=== PATIENT | male | born 2000 | race Caucasian/White ===

== ENCOUNTER → 2022-07-26 | Outpatient (POV) | payer OTHER ==
[~2022-07-26] VITALS: Ht 182.9 cm; Wt 102.3 kg
[2022-07-26 08:00] VITALS: BP 150/90
== END ==
LOC: M IRPOV 07:24
PROVIDERS: ATTEND Radiology Diagnostic Radiology
DX: I86.1 Scrotal varices (principal)

== ENCOUNTER → 2022-08-08 | Outpatient (CLI) | payer OTHER | LOC: M LABSMTC 11:45 | PROVIDERS: ATTEND Anesthesiology | DX: Z01.818 Encounter for other preprocedural examination (principal); Z11.52 Encounter for screening for COVID-19 ==

== ENCOUNTER → 2022-08-11 | Outpatient (CLI) | payer OTHER ==
[~2022-08-11] MED LIST: ISOVUE-300 61% 100ML VIAL As Ordered ONE; LIDOCAINE 1% MDV 20ML VIAL As Ordered ONE; MIDAZOLAM INJ 2MG/2ML VIAL As Ordered ONE; NS 1,000 ML IV SCH; SODIUM TETRADECYL SULFATE(3%)30MG/ML 2ML VIAL (SOTRADECOL) As Ordered ONE; diphenhydrAMINE 50MG/ML VIAL As Ordered ONE; fentaNYL 100 MCG/2 ML INJECTION As Ordered ONE
[2022-08-11 11:45] VITALS: BP 133/71
== END ==
LOC: M IRPRO 07:11
PROVIDERS: ATTEND Radiology Diagnostic Radiology
DX: I86.1 Scrotal varices (principal)
CPT/HCPCS: 37241; 99152; 99153; C1769; C1887; C1894; J1200; J2250; J3010; Q9967

== ENCOUNTER → 2022-09-06 | Outpatient (POV) | payer OTHER ==
[~2022-09-06] VITALS: Ht 182.9 cm; Wt 102.0 kg
[2022-09-06 10:50] VITALS: BP 155/70
== END ==
LOC: M IRPOV 10:37
PROVIDERS: ATTEND Radiology Diagnostic Radiology
DX: I86.1 Scrotal varices (principal); N50.82 Scrotal pain

== ENCOUNTER → 2022-09-23 | Outpatient (REF) | LOC: M LAB 09:02 ==